=== PATIENT | female | born 1980 | race Two or more races ===

== ENCOUNTER 2021-02-26 20:34 | Emergency (ER) | payer SELFPAY ==
[~2021-02-26] VITALS: Ht 167.6 cm; Wt 95.0 kg
--- NOTE | 2021-02-26 21:06 | NUR ---
ASSUMED CARE OF PATIENT. PATIENT C/O RECTAL BLEEDING AND BILATERAL LOWER ABD PAIN. PT REPORTS SOME BLOOD WHEN SHE WIPES. VS STABLE. CALL LIGHT IN PLACE. WILL CONTINUE TO MONITOR.
[2021-02-26 21:58] VITALS: BP 137/82
--- NOTE | 2021-02-26 21:59 | NUR ---
DR CANTOR HAS UPDATED PATIENT
== END 2021-02-26 22:30 | disposition home or self-care (01) ==
LOC: ED 21:04
DX: K64.8 Other hemorrhoids (principal)
CPT/HCPCS: 99283